=== PATIENT | female | born 1955 | race Caucasian/White ===

== ENCOUNTER → 2024-03-23 | Outpatient (CLI) | payer MEDICARE ==
[2024-03-23 12:35] LABS: Prothrombin Time 10.6 sec (10.0-12.5)
[2024-03-23 15:42] LABS: ALT 35 U/L (8-44); AST 59 U/L (13-35); Albumin 4.5 g/dL (3.8-4.9); Albumin/Globulin Ratio 1.73 Ratio (1.60-3.17); Alkaline Phosphatase 114 U/L (41-126); Blood Urea Nitrogen 6.9 mg/dL (9.0-27.0); Calcium 10.2 mg/dL (8.7-10.3); Carbon Dioxide 24.4 mmol/L (21.6-31.8); Chloride 97 mmol/L (96-109); Globulin 2.6 g/dL (1.6-3.3); Glucose 109 mg/dL (70-110); Potassium 4.9 mmol/L (3.5-5.5); Sodium 132 mmol/L (135-145); Total Bilirubin 0.6 mg/dL (0.3-1.2); Total Protein 7.1 g/dL (6.2-8.2)
[2024-03-23 16:01] LABS: HCT 42.5 % (37.2-46.3); HGB 14.5 g/dL (12.0-15.0); MCH 33.9 pg (27.0-32.0); MCHC 34.1 g/dL (32.0-37.0); MCV 99.3 FL (80.0-97.0); NRBC Per 100 WBC 0 X 10*3/uL (0.00-0.01); Platelet Count 345 X 10*3/uL (140-440); RBC 4.28 X 10*6/uL (4.10-5.20); RDW 11.6 % (11.5-14.5); WBC 7.04 X 10*3/uL (4.50-10.00)
== END | disposition home or self-care (01) ==
LOC: LABPAT 11:24
PROVIDERS: ATTEND Orthopaedic Surgery
DX: Z01.812 Encounter for preprocedural laboratory examination
CPT/HCPCS: 80053; 85027; 85610; 85730; 87070

== ENCOUNTER 2024-04-07 09:06 | Day surgery (SDC) | payer MEDICARE ==
[2024-03-31 10:52] VITALS: BMI 27.4
[~2024-04-07 09:06] MED LIST: HYDROmorphone 0.5 MG/0.5 ML SYRINGE IVP PRN; LIDOCAINE 1% (10MG/ML) FOR IV START INTRADERMA PRN; MAGNESIUM HYDROXIDE 2,400 MG/30 ML CUP PO PRN; METOCLOPRAMIDE 5 MG/ML 2 ML VIAL IVP PRN; NA PHOS,M-B/NA PHOS,DI-BA 133 ML ENEMA RECTAL PRN; NALOXONE 0.4 MG/ML 1 ML VIAL IV PRN; ONDANSETRON 4 MG/2 ML VIAL IVP PRN; TRANEXAMIC 1,000 MG/100ML-NACL 1,000 MG in SALINE 1 100ML.BAG IVPB PRN; bisacodyL 10 MG SUPP RECTAL PRN; fentaNYL (PF) 50 MCG/ML 2 ML AMP IV PRN
[2024-04-07] MEDS: IV FLUID CONTINUATION 1,000 ML IV ONE ×2 (09:35→12:45)
[2024-04-07] MEDS: GABAPENTIN 300 MG CAP PO PRN (09:55)
[2024-04-07] MEDS: ONDANSETRON 4 MG/2 ML VIAL IVP ONE (09:55)
[2024-04-07] MEDS: ACETAMINOPHEN TAB 500 MG TAB PO PRN (09:55)
[2024-04-07] MEDS: DEXAMETHASONE SOD PHOSPHATE 4 MG/ML 1 ML VIAL IV ONE (09:55)
[2024-04-07] MEDS: MIDAZOLAM 2 MG/2 ML VIAL IV ONE (10:01)
[2024-04-07] MEDS: VANCOMYCIN 1,250 MG in SODIUM CHLORIDE 0.9% 250 ML IVPB PRN (10:11)
[2024-04-07] MEDS ORDERED: MIDAZOLAM 2 MG/2 ML VIAL ONE (10:19)
[2024-04-07] MEDS ORDERED: HYDROmorphone (PF) 1 MG/ML ONE (10:19)
[2024-04-07] MEDS ORDERED: SUCCINYLCHOLINE CHLORIDE 200 MG/10 ML VIAL IV ONE (10:19)
[2024-04-07] MEDS ORDERED: ROPIVACAINE 5 MG/ML 30 ML VIAL ONE (10:19)
[2024-04-07] MEDS ORDERED: LIDOCAINE 1% INJ 10MG/ML (20 ML MDV) ONE (10:19)
[2024-04-07] MEDS ORDERED: fentaNYL (PF) 50 MCG/ML 2 ML AMP ONE (10:19)
[2024-04-07] MEDS ORDERED: DEXAMETHASONE SOD PHOSPHATE 4 MG/ML 1 ML VIAL ONE (10:19)
[2024-04-07] MEDS ORDERED: PROPOFOL 10 MG/ML 20 ML VIAL IV ONE (10:19)
[2024-04-07] MEDS ORDERED: TRANEXAMIC 1,000 MG/100ML-NACL PREMIX BAG ONE (10:19)
[2024-04-07] MEDS: ceFAZolin 1,000 MG in SODIUM CHLORIDE 0.9% 1,000 ML IRRIGATION ONE (10:24)
--- NOTE | 2024-04-07 10:56 | P.ANPRN ---
Procedure Note - Anesthesia - Nerve Block Performed Left Augustineck Single Time Out Performed: Yes Date of Procedure: 04/07/24 Procedure Start Time: 10:01 Procedure Stop Time: 10:06 Location of Patient: PreOp Indication: Acute Post-Operative Pain, Analgesia, Requested by Surgeon Sedation Type: Sedate with meaningful contact maintained Preparation: Sterile Prep Position: Right Lateral Catheter: None Needle Types: Pajunk Needle Gauge: 21 Ultrasound used to visualize needle placement: Yes Ultrasound used to observe medication spread: Yes Injectate: 0.5% Ropivacaine (see comment for volume) (Ropiv 20ml+Decadron 4mg) Blood Aspirated: No Pain Paresthesia on Injection Noted: No Resistance on Injection: Normal Image Stored and Saved: Yes Events: Uneventful and Well Tolerated
--- NOTE | 2024-04-07 10:57 | P.ANPRN ---
Procedure Note - Anesthesia - Nerve Block Performed Left Adductor Canal Infusion Time Out Performed: Yes Date of Procedure: 04/07/24 Procedure Start Time: 10:06 Procedure Stop Time: 10:10 Location of Patient: PreOp Indication: Acute Post-Operative Pain, Analgesia, Requested by Surgeon Sedation Type: Sedate with meaningful contact maintained Preparation: Sterile Prep Position: Supine Catheter: Indwelling Needle Types: On-Q Ultrasound used to visualize needle placement: Yes Ultrasound used to observe medication spread: Yes Injectate: 0.5% Ropivacaine (see comment for volume) (Ropiv 20ml+Decadron 4mg) Blood Aspirated: No Pain Paresthesia on Injection Noted: No Resistance on Injection: Normal Image Stored and Saved: Yes Events: Uneventful and Well Tolerated
--- NOTE | 2024-04-07 11:33 | P.OP ---
Date of Procedure: 04/07/24 Preoperative Diagnosis: Severe osteoarthritis left knee Postoperative Diagnosis: Severe osteoarthritis left knee Procedure(s) Performed: Left total knee arthroplasty Implants: Lopez [employer] Nephew Journey II CR Oxinium cruciate retaining femoral component size 6, left [employer] Journey nonporous tibial baseplate size 4, left [employer] Journey II, XLPE Deep Dished articular insert, size 9 mm, Size 3- 4, left [employer] Journey Jolene II resurfacing patellar component, oval, 32 mm All components were cemented using Palacos R bone cement The articulation is Oxinium on polyethylene Anesthesia: spinal Surgeon: Daljit Pedroza Active Directory Engineer #1: Maame Lynn Estimated Blood Loss (ml): 25 Pathology: none sent Condition: stable Disposition: PACU Indications for Procedure: The patient's knee is end-stage, and conservative management has failed. The operation of knee replacement has been discussed at length in the office, as well as potential risks and complications. These are inclusive of, but not limited to: Infection, bleeding, scarring, discomfort, stiffness, blood vessel and nerve damage, need for further surgery, failure to relieve symptoms, persistence, recurrence, or worsening of problems, loosening, dislocation, wear, blood clot, pulmonary embolism, , gait dysfunction, stiffness, and other risks as discussed in the office. Patient elects to proceed and the consent form has been signed. Operative Findings: the operative findings are consistent with severe osteophyte throughout his left knee Description of Procedure: The patient was seen in the preoperative area, the consent was reviewed and the operative site was marked with a skin marker. The patient verified the procedure and the operative site. An adductor canal pain catheter and an iPACK block were placed by anesthesia in the preoperative area. The patient was then brought to the operating room and positioned on the operating room table in the supine position. Preoperative antibiotics and a gram of tranexamic acid were given intravenously. A spinal anesthetic was administered by the anesthesia department. Care was taken to make sure that all pressure points were adequately padded. A tourniquet was placed on the upper thigh and the lower extremity was prepped with ChloraPrep and draped in usual sterile fashion. A universal time-out was then performed which confirmed the patient's name, surgical site, ALLERGIES, and consent. The lower extremity was then exsanguinated and tourniquet was inflated to 250 mmHg. A standard anterior midline approach to the knee was performed. The skin and subcutaneous tissue were sharply dissected down to the patellar tendon. A medial parapatellar arthrotomy was then performed. The knee was then extended, the patellar was everted, and the knee was flexed. The infra-patellar fat pad was removed in order to enhance exposure. The anterior horns of both menisci were excised, and a release was performed to the posterior medial aspect of the knee. On gross visual inspection, there was complete loss of articular cartilage in the medial and patellofemoral joint spaces. There was also significant cartilage damage in the lateral compartment. There were multiple periarticular osteophytes globally about the knee which were then removed with a Ronguer. The femoral canal was then opened with the 9.5 mm intramedullary drill. The 8 mm intramedullary nicky was then inserted into the femoral canal with the distal femoral cutting guide set for 5 of valgus. The distal femoral cutting block was then pinned in place. The intramedullary nicky was then removed, and the distal femur was then cut. The cutting block was then removed and the cut was checked for symmetry. The resected bone was then measured to confirm the appropriate distal femoral resection. Next, the sizing guide was then placed and set for 3 external rotation based off of the epicondylar axis and Gilbert's line. Pins were then placed and the drill holes, and the femur was sized with the sizing stylus. The pins were then removed, and the sizing guide was then removed. The spikes of the appropriate size femoral block was th en placed into the predrilled holes, and malleted into place. Two 45 mm pins were then placed into the fixation holes on the cutting block. An joel wing was then used to ensure there would be no notching with the anterior cut. The anterior condyles were cut without notching. The anterior chord cut was then performed, followed by the posterior cut, posterior chamfer cut, and the anterior chamfer cut. The collateral ligaments were protected during the entire process. The cutting block was then removed. Any remaining bone and osteophytes were removed from the femur with a Ronguer. Attention was then directed to the tibia. The remaining ACL was removed with a Ronguer, and the tibia was then gently subluxed forward with a large bent knee retractor. Any remaining menisci were excised. The posterior lateral corner was cauterized in order to coagulate the lateral geniculate artery. The extra medullary tibial cutting guide was then placed, set for the appropriate rotation, slope, and depth of resection. The proximal tibia cutting guide was then pinned in place. Proximal tibia was then cut and sized. A curved osteotome was then used to remove any posterior osteophytes from the distal femur. The femoral trial was placed. A narrow saw blade was then used to remove the anterior intracondylar femoral bone. The CR notch trial was then placed. The tibial trial was placed with the appropriate-sized insert. The knee was able to fully extend and flex to 130 and was stable throughout all range of motion. The knee was then extended and the patella was everted. Patella was then measured, and then using an osteotomy guide, the patella was cut at the appropriate level. The patellar component was sized. The patellar drill guide was placed and the patella was drilled. The patella trial was then placed. The knee was then taken through range of motion with the patella trial and the patella tracked normally using the no thumbs technique. The patella trial was then removed. The knee was then flexed and lug holes were drilled through the femoral trial and the femoral trial was then removed. The tibial was then re- exposed, and the tibial broach guide was then pinned in place after it was set for the appropriate rotation to allow for the most coverage without overhang. The tibia was then reamed and broached. The femoral canal was plugged with autologous bone. The cut surfaces of bone were then irrigated with pulsatile lavage. The knee was also irrigated with Irrisept solution. The components were then opened, the cement was mixed. Cement was placed on the backside of the femoral, tibial, and patellar components. Cement was then applied to the tibial surface and pressurized into the surface using finger pressurization technique. The tibial component was then applied and excess cement was removed after it was impacted securely noted to be flush with the cut surface. In similar fashion, the cement was applied to the cut femoral surface, pres surized and using finger pressurization the component was impacted in place. Excess cement was removed. The polyethylene spacer was then implanted and locked into position. Patellar component was then applied in a similar technique and the patellar clamp was used to hold patella in place while the cement hardened. The knee was held in full extension while the cement hardened. Once the cement had fully hardened, the knee was reinspected. Any other cement extrusion was removed the final range of motion testing showed range of motion from 0-130 with excellent stability, both medial and laterally and appropriate alignment of the leg. Patella tracked normally. After the cemented hardened, the tourniquet was released and hemostasis was obtained. A second gram of transexamic acid was given intravenously. The knee was again irrigated. The knee was again taken through range of motion and found to be stable throughout all range of motion of 0-130, and the patella tracked normally. The fascia was then closed with 0 Vicryl followed by #2 strata fix suture. The subcutaneous tissue was closed with 3-0 Vicryl and 3-0 strata fix. Exofin glue was used for the skin and placed with the knee in flexion. After the glue had dried, and Optafoam silver impregnated dressing was applied. A lightly compressive dressing was applied using web roll and Anders wrap. Patient was then transferred to the stretcher and taken to recovery room in stable condition. Sponge and needle counts were correct. The assistant women's soccer coach DIANA Toro was required due the complexity surgery and the need for a skilled certified surgical assistant. She assisted in positioning, draping, retraction, and closure of the wound.
[2024-04-07] MEDS: HYDROmorphone 0.5 MG/0.5 ML SYRINGE IVP PRN ×2 (12:13→20:09)
[2024-04-07] MEDS: ROPIVACAINE 1,100 MG, SODIUM CHLORIDE 0.9% 500 ML 330 ML, EMPTY PAIN BALL 1 EACH MISCELLANE PRN (12:26)
--- NOTE | 2024-04-07 12:46 | XR ---
EXAMINATION TYPE: XR knee limited LT DATE OF EXAM: 04/07/2024 CLINICAL HISTORY: Postoperative evaluation Two views of the left knee are submitted. Identified are changes of total knee arthroplasty with fem oral and tibial components appearing well seated. Postsurgical soft tissue changes are noted. Align ment is anatomic. [facility], , 04/07/2024 12:44 PM
[2024-04-07] MEDS: hydrALAZINE HCL 20 MG/ML 1 ML VIAL IVP STA (12:50)
[2024-04-07] MEDS: LACTATED RINGERS 1,000 ML IV SCH (13:36)
[2024-04-07] MEDS: [UNRECOGNIZED DRUG - REMARK] MISCELLANE ONE (13:36)
[2024-04-07] MEDS: ASPIRIN 325 MG TAB PO SCH (13:36)
[2024-04-07] MEDS: SODIUM CHLORIDE 0.9% 1,000 ML IV SCH (15:43)
[2024-04-07] MEDS: hydrOXYzine pamoate 25 MG CAP PO PRN (20:08)
--- NOTE | 2024-04-07 23:01 | P.CONS ---
History of Present Illness - Reason for Consult Consult date: 04/07/24 Medical management Requesting physician: Daljit Pedroza - Chief Complaint Left knee surgery - History of Present Illness Pleasant 68-year-old patient follows with Dr. Harley Saleh. Stable medical conditions include hyperlipidemia, osteoarthritis, history of neck pain and headaches after shoulder surgery. History of right breast cancer in 2008 treated with chemo and radiation. Patient has undergone left total knee arthroplasty. Postprocedure pain is controlled. No nausea vomiting. Did tolerate her supper. Sitting up in chair. No cardiac symptoms. Denies any cardiac history Review of systems: GEN.: None EYES: None HEENT: None NECK: [Occasional neck pain RESPIRATORY: None CARDIOVASCULAR: None GASTROINTESTINAL: None GENITOURINARY: None MUSCULOSKELETAL: Joint pains e LYMPHATICS: None HEMATOLOGICAL: None PSYCHIATRY: None NEUROLOGICAL: None Social history: Patient smoked a pack a day since high school up to 2016. 3 to 4 glasses of wine per day. . Physical examination: VITAL SIGNS: 97.9, 71, 17, 1 4585, 95% room air GENERAL: BMI 27.8, sitting up in a chair awake comfortable. EYES: Pupils equal. Conjunctiva андрей l. HEENT: External appearance of nose and ears normal, oral cavity grossly normal. NECK: JVD not raised; masses not palpable. HEART: First and second heart sounds are normal; no edema. LUNGS: Respiratory rate normal; clear to auscultation. ABDOMEN: Soft, nontender, liver spleen not palpable, no masses palpable. PSYCH: Alert and oriented x3; mood and affect андрей l. MUSCULOSKELETAL:No Clubbing/cyanosis;muscles-grossly intact. OA. Dressing over left knee. NEUROLOGICAL: Cranial nerves grossly intact; no facial asymmetry, power and sensation grossly intact. LYMPHATICS: No lymph nodes palpable in the axilla and neck INVESTIGATIONS, reviewed in the clinical context: March 23, 2024: White count 7.0 hemoglobin 14.5 platelets 345 potassium 4.9 creatinine 0.6 Assessment plan: -Left total knee arthroplasty IV Ancef for infection prophylaxis. Decadron 1 dose. Aspirin 325 twice daily for DVT prophylaxis. -Primary osteoarthritis Pain medication as needed -Hypercholesteremia Simvastatin 40 mg nightly -Alcohol use disorder Patient drinks 3 to 4 glasses of wine at night. Should follow-up outpatient with liver function Care was discussed with the patient. Questions answered. Thank Dr. Pedroza Past Medical History Past Medical History: Cancer, Hyperlipidemia, Osteoarthritis (OA) Additional Past Medical History / Comment(s): Right breast cancer 2008, had chemo and radiation. Recent frequent headaches and neck pain. History of Any Multi-Drug Resistant Organisms: None Reported Year Discovered:: 03/23/24 MDRO Source:: nasal Past Surgical History: Back Surgery, Breast Surgery, Orthopedic Surgery Additional Past Surgical History / Comment(s): Right shoulder surgery, spinal fusion X2 C5-C6-C7, L1-L2, L5-S1, right breast biospy and lumpectomy. Past Anesthesia/Blood Transfusion Reactions: No Reported Reaction Past Psychological History: No Psychological Hx Reported Smoking Status: Former smoker Past Alcohol Use History: Daily Additional Past Alcohol Use History / Comment(s): Quit smoking in 2015, started in high school, 1 ppd. 3-4 glasses of wine per day. Past Drug Use History: None Reported - Past Family History Mother Family Medical History: Cancer Sister(s) Family Medical History: Cancer Medications and Allergies Home Medications Medication Instructions Recorded Confirmed Type Acetaminophen [Tylenol Extra 500 mg PO DIRECTED PRN 03/31/24 03/31/24 History Strength] Harjinder/D3/Mag11/Zinc/Entry Examiner/Yannick/Bor 1 each PO DAILY 03/31/24 03/31/24 History [Caltrate 600+D Plus Tablet] Cholecalciferol [Vitamin D3 (25 25 mcg PO DAILY 03/31/24 03/31/24 History Mcg = 1000 Iu)] Cyanocobalamin (Vitamin B-12) 1,000 mcg PO DAILY 03/31/24 03/31/24 History [Vitamin B-12] Multivitamins, Thera [Multivitamin 1 tab PO DAILY 03/31/24 03/31/24 History (formulary)] Simvastatin 40 mg PO HS 03/31/24 03/31/24 History dexAMETHasone [Decadron] 0.75 mg PO DIRECTED 03/31/24 03/31/24 History methocarbamoL 750 mg PO DIRECTED PRN 03/31/24 03/31/24 History Aspirin 325 mg PO BID #60 tab 04/07/24 Rx HYDROcodone/APAP 7.5-325MG [[place] 1 - 2 tab PO Q6H PRN #32 tab 04/07/24 Rx 7.5-325] Sennosides [Senokot] 2 tab PO DAILY PRN #60 tablet 04/07/24 Rx Allergies Allergy/AdvReac Type Severity Reaction Status Date / Time bupropion [From Zyban] Allergy Swelling Verified 04/07/24 09:22 celecoxib [From Celebrex] Allergy Rash/Hives Verified 04/07/24 09:22 Physical Exam Vitals: Vital Signs Temp Pulse Pulse Resp BP BP Pulse Ox 04/07/24 14:30 97.9 F 71 17 145/85 95 04/07/24 13:03 76 16 141/72 97 04/07/24 12:55 75 17 165/80 99 04/07/24 12:45 61 18 196/78 99 04/07/24 12:30 68 17 171/83 99 04/07/24 12:15 68 16 148/86 99 04/07/24 12:08 77 18 167/98 99 04/07/24 11:58 96.9 F L 75 14 177/82 96 04/07/24 10:05 62 16 181/86 97 04/07/24 09:50 233/105 04/07/24 09:20 97.2 F L 79 16 226/109 97 Intake and Output 04/07/24 04/07/24 04/07/24 06:59 14:59 22:59 Intake Total 1351 420 Output Total 25 Balance 1326 420 Intake: IV 1351 Oral 420 Output: Estimated Blood Loss 25 Other: # Voids 1 Weight 78.1 kg
[2024-04-07] MEDS: SENNOSIDES-DOCUSATE SODIUM 1 EACH TAB PO SCH (23:05)
[2024-04-07] MEDS: ATORVASTATIN 20 MG TAB PO SCH (23:05)
[2024-04-07] MEDS: HYDROcodone/APAP 7.5-325MG 1 EACH TAB PO PRN (23:12)
[2024-04-08] MEDS: MULTIVITAMINS, THERA 1 EACH TAB PO SCH (08:03)
[2024-04-08] MEDS: CYANOCOBALAMIN 500 MCG TAB PO SCH (08:05)
[2024-04-08] MEDS: CHOLECALCIFEROL 25 MCG (1000 IU) TABLET PO SCH (08:05)
--- NOTE | 2024-04-08 08:33 | P.PN ---
Progress Note - Text Progress Note Date: 04/08/24 Postoperative day # 1 status post total knee arthroplasty, and adductor canal catheter placed for postoperative analgesia, currently at ropivacaine 0.2% 8 mL per hour and continuous infusion, visual analogue scale is 3/10, patient using oral pain medication for breakthrough pain. Assessment and plan= Acute postoperative pain, adductor canal catheter for pain control, pain is well controlled we'll continue the same management.
[2024-04-08 08:45] LABS: HCT 33.1 % (37.2-46.3); HGB 11.5 g/dL (12.0-15.0); MCH 35.1 pg (27.0-32.0); MCHC 34.7 g/dL (32.0-37.0); MCV 100.9 FL (80.0-97.0); NRBC Per 100 WBC 0 X 10*3/uL (0.00-0.01); Platelet Count 328 X 10*3/uL (140-440); RBC 3.28 X 10*6/uL (4.10-5.20); RDW 11.8 % (11.5-14.5)
[2024-04-08 09:56] LABS: Basophils # (M) 0 X 10*3/uL (0.00-0.10); Eosinophils # (M) 0 X 10*3/uL (0.04-0.35); Lymphocytes # (M) 1.26 X 10*3/uL (0.90-5.00); Neutrophils # (M) 11.34 X 10*3/uL (1.80-7.70); Neutrophils % (M) 81 %
--- NOTE | 2024-04-08 12:19 | P.PN ---
Subjective Progress Note Date: 04/08/24 This is a 68-year-old fe male who is status post left total knee arthroplasty. This is postoperative day #1 and patient is seen and evaluated at bedside today. Patient states that she is doing well and was able to work with physical therapy without difficulty. Patient states that she started having quite a bit of bloody drainage from the knee around lunchtime today. Otherwise patient denies any new complaints today. Objective - Vital Signs Vital signs: Vital Signs Temp 99.2 F 04/08/24 07:15 Pulse 89 04/08/24 07:15 Resp 18 04/08/24 07:15 BP 154/88 04/08/24 07:15 Pulse Ox 96 04/08/24 07:15 FiO2 Intake & Output 04/07/24 04/08/24 04/08/24 18:59 06:59 18:59 Intake Total 1771 Output Total 25 Balance 1746 Weight 78.1 kg Intake: IV 1351 Oral 420 Output: Estimated Blood Loss 25 Other: Voiding Method Toilet Toilet # Voids 1 5 - Exam Vital signs are stable. Patient is in no acute distress and is alert and oriented 3. Calf is soft and nontender to palpation. Incision is intact with a small area of bloody drainage in the middle of the incision. There is mild swelling present. Patient is able to straight leg raise. Patient has full foot and ankle motion without pain or difficulty. Sensation intact. Neurovascular status and circulatory status are intact. - Labs CBC & Chem 7: 04/08/24 03:16 Labs: Abnormal Lab Results - Last 24 Hours (Table) 04/08/24 Range/Units 03:16 WBC 14.00 H (4.50-10.00) X 10*3/uL RBC 3.28 L (4.10-5.20) X 10*6/uL Hgb 11.5 L (12.0-15.0) g/dL Hct 33.1 L (37.2-46.3) % MCV 100.9 H (80.0-97.0) FL MCH 35.1 H (27.0-32.0) pg MPV 9.0 L (9.5-12.2) FL Neutrophils # (Manual) 11.34 H (1.80-7.70) X 10*3/uL Monocytes # (Manual) 1.40 H (0.20-1.00) X 10*3/uL Eosinophils # (Manual) 0 L (0.04-0.35) X 10*3/uL Assessment and Plan (1) Osteoarthritis of left knee Current Visit: Yes Status: Acute Code(s): M17.12 - UNILATERAL PRIMARY OSTEOARTHRITIS, LEFT KNEE SNOMED Code(s): 540528688166139 (2) S/P total knee arthroplasty Current Visit: Yes Status: Acute Code(s): Z96.659 - PRESENCE OF UNSPECIFIED ARTIFICIAL KNEE JOINT SNOMED Code(s): 3886201932076 Plan: #1 Continue with routine postoperative care and pain control. Reinforce dressing as needed for drainage. Recommend knee immobilizer to help keep the knee straight until drainage subsides. #2 Anticoagulation with aspirin. #3 Physical therapy today. Patient is to refrain from bending the right knee until her drainage slows down. #4 Appreciate input from internal medicine. #5 Anticipate discharge home with home care later today or tomorrow.
--- NOTE | 2024-04-08 18:40 | P.PN ---
Progress Note - Text Progress Note Date: 04/08/24 - Chief Complaint Left knee surgery - History of Present Illness Pleasant 68-year-old patient follows with Dr. Harley Saleh. Stable medical conditions include hyperlipidemia, osteoarthritis, history of neck pain and headaches after shoulder surgery. History of right breast cancer in 2008 treated with chemo and radiation. Patient has undergone left total knee arthroplasty. Postprocedure pain is controlled. No nausea vomiting. Did tolerate her supper. Sitting up in chair. No cardiac symptoms. Denies any cardiac history April 08: Sitting up in a chair. Did ambulate. Pain controlled. Nausea vomiting. Tolerated diet. No cardiac symptoms. Add ferrous sulfate. Knee immobilizer has been ordered for the patient Active Medications Hydrocodone Bitart/Acetaminophen (Hydrocodone/Apap 7.5-325mg 1 Each Tab) 1 each PO Q6H PRN PRN Reason: Pain Scale 1 to 5 Stop: 05/07/24 08:43 Last Admin: 04/08/24 16:44 Dose: 1 each Hydrocodone Bitart/Acetaminophen (Hydrocodone/Apap 7.5-325mg 1 Each Tab) 2 each PO Q6H PRN PRN Reason: Pain Scale 6 to 10 Stop: 05/07/24 08:43 Aspirin (Aspirin 325 Mg Tab) 325 mg PO BID [facility] Stop: 05/07/24 08:59 Last Admin: 04/08/24 08:03 Dose: 325 mg Atorvastatin Calcium (Atorvastatin 20 Mg Tab) 20 mg PO HS [facility] Last Admin: 04/07/24 23:05 Dose: 20 mg Bisacodyl (Bisacodyl 10 Mg Supp) 10 mg RECTAL DAILY PRN PRN Reason: Constipation Stop: 05/07/24 08:42 Cholecalciferol (Cholecalciferol 25 Mcg (1000 Iu) Tablet) 25 mcg PO DAILY [facility] Last Admin: 04/08/24 08:05 Dose: 25 mcg Ropivacaine 1,100 mg/ Sodium Chloride 330 ml/ Bandage/Support Products 1 each 0 mg MISCELLANE Q2H PRN PRN Reason: Breakthrough Pain Stop: 05/07/24 10:56 Last Admin: 04/07/24 12:26 Dose: 550 ml Cyanocobalamin (Cyanocobalamin 500 Mcg Tab) 1,000 mcg PO DAILY [facility] Last Admin: 04/08/24 08:05 Dose: 1,000 mcg Hydromorphone HCl (Hydromorphone 0.5 Mg/0.5 Ml Syringe) 0.125 mg IVP Q3HR PRN PRN Reason: Pain Scale 1 to 3 Stop: 05/07/24 08:42 Hydromorphone HCl (Hydromorphone 0.5 Mg/0.5 Ml Syringe) 0.5 mg IVP Q3HR PRN PRN Reason: Pain Scale 7 to 10 Stop: 05/07/24 08:42 Last Admin: 04/07/24 20:09 Dose: 0.5 mg Hydromorphone HCl (Hydromorphone 0.5 Mg/0.5 Ml Syringe) 0.25 mg IVP Q3HR PRN PRN Reason: Pain Scale 4 to 6 Stop: 05/07/24 08:42 Hydroxyzine Pamoate (Hydroxyzine Pamoate 25 Mg Cap) 25 mg PO Q4HR PRN PRN Reason: Nausea, Anxiety, Pain Control Stop: 05/07/24 08:42 Last Admin: 04/07/24 20:08 Dose: 25 mg Lactated Ringer's (Lactated Ringers) 1,000 mls @ 20 mls/hr IV .Q24H [facility] Stop: 05/07/24 06:24 Last Admin: 04/08/24 00:55 Dose: Not Given Sodium Chloride (Saline 0.9%) 1,000 mls @ 70 mls/hr IV .[id number] [facility] Stop: 05/07/24 08:44 Last Admin: 04/08/24 16:43 Dose: Not Given Lidocaine HCl (Lidocaine 1% (10mg/Ml) For Iv Start) 0.1 ml INTRADERMA PER PROTOCOL PRN PRN Reason: IV Start Stop: 05/07/24 06:24 Magnesium Hydroxide (Magnesium Hydroxide 2,400 Mg/30 Ml Cup) 2,400 mg PO DAILY PRN PRN Reason: Constipation Stop: 05/07/24 08:42 Multivitamins (Multivitamins, Thera 1 Each Tab) 1 each PO DAILY [facility] Last Admin: 04/08/24 08:05 Dose: 1 each Naloxone HCl (Naloxone 0.4 Mg/Ml 1 Ml Vial) 0.2 mg IV Q2M PRN PRN Reason: Opioid Reversal Stop: 05/07/24 08:42 Ondansetron HCl (Ondansetron 4 Mg/2 Ml Vial) 4 mg IVP Q8HR PRN PRN Reason: Nausea And Vomiting Stop: 05/07/24 08:42 Senna/Docusate Sodium (Sennosides-Docusate Sodium 1 Each Tab) 2 each PO HS [place] Stop: 05/07/24 20:59 Last Admin: 04/07/24 23:05 Dose: 2 each Sodium Biphosphate/Sodium Phosphate (Na Phos,M-B/Na Phos,Di-Ba 133 Ml Enema) 133 ml RECTAL DAILY PRN PRN Reason: Constipation Stop: 05/07/24 08:42 Social history: Patient smoked a pack a day since high school up to 2016. 3 to 4 glasses of wine per day. . Physical examination: VITAL SIGNS: 97.7, 87, 18, 139 x 78, 98% room air GENERAL: Sitting up in a chair, awake comfortable EYES: Pupils equal. Conjunctiva андрей l. HEENT: External appearance of nose and ears normal, oral cavity grossly normal. NECK: JVD not raised; masses not palpable. HEART: First and second heart sounds are normal; no edema. LUNGS: Respiratory rate normal; clear to auscultation. ABDOMEN: Soft, nontender, liver spleen not palpable, no masses palpable. PSYCH: Alert and oriented x3; mood and affect андрей l. MUSCULOSKELETAL:No Clubbing/cyanosis;muscles-grossly intact. OA. Dressing over left knee. INVESTIGATIONS, reviewed in the clinical context: April 08: White count 14 hemoglobin 9.5 platelets 328 March 23, 2024: White count 7.0 hemoglobin 14.5 platelets 345 potassium 4.9 creatinine 0.6 Assessment plan: -Left total knee arthroplasty IV Ancef for infection prophylaxis. Decadron 1 dose. Aspirin 325 twice daily for DVT prophylaxis. -Acute postprocedure blood loss anemia expected from surgery Add ferrous sulfate -Primary osteoarthritis Pain medication as needed -Leukocytosis likely reactive. No obvious clinical evidence of infection -Hypercholesteremia Simvastatin 40 mg nightly -Alcohol use disorder Patient drinks 3 to 4 glasses of wine at night. Should follow-up outpatient with liver function Discussed with patient. Add ferrous sulfate Thank Dr. Pedroza Past Medical History Past Medical History: Cancer, Hyperlipidemia, Osteoarthritis (OA) Additional Past Medical History / Comment(s): Right breast cancer 2008, had chemo and radiation. Recent frequent headaches and neck pain. History of Any Multi-Drug Resistant Organisms: None Reported Year Discovered:: 03/23/24 MDRO Source:: nasal Past Surgical History: Back Surgery, Breast Surgery, Orthopedic Surgery Additional Past Surgical History / Comment(s): Right shoulder surgery, spinal fusion X2 C5-C6-C7, L1-L2, L5-S1, right breast biospy and lumpectomy. Past Anesthesia/Blood Transfusion Reactions: No Reported Reaction Past Psychological History: No Psychological Hx Reported Smoking Status: Former smoker Past Alcohol Use History: Daily Additional Past Alcohol Use History / Comment(s): Quit smoking in 2015, started in high school, 1 ppd. 3-4 glasses of wine per day. Past Drug Use History: None Reported
[2024-04-08] MEDS: FERROUS SULFATE 325 MG TAB PO SCH (21:34)
[2024-04-09] MEDS: HYDROcodone/APAP 7.5-325MG 1 EACH TAB PO PRN (00:13)
[2024-04-09 08:53] VITALS: BP 107/70; PULSE 80; RESP 16; TEMP 98.3
--- NOTE | 2024-04-09 10:20 | P.DS ---
Providers Expected date of discharge: 04/09/24 Attending physician: Daljit Pedroza Consults: 04/07/24 08:43 Consult Physician Routine Consulting Provider: Kranthi Thomas Consult Reason/Comments: medical management Do you want consulting provider notified?: Yes Primary care physician: Harley Saleh - Discharge Diagnosis(es) (1) Osteoarthritis of left knee Current Visit: Yes Status: Acute (2) S/P total knee arthroplasty Current Visit: Yes Status: Acute Hospital Course: This is a 68-year-old female with known history of degenerative arthritis of the left knee. The patient presented for evaluation as an outpatient. After discussion and consideration patient elects to proceed with total knee arthroplasty. The patient is seen preoperatively by Dr. Pedroza and medically cleared for surgery by their primary care physician. Patient is [facility] to [facility] on 04/07/2024 for total knee arthroplasty. The procedure is performed without complication or sequelae. The patient is doing well postoperatively. Labs and vital signs are stable on day of discharge. On day of discharge patient's knee incision is healing well. There is minimal erythema. There is mild bloody drainage noted at this time. There is minimal soft tissue swelling to the knee. Patient has full foot and ankle motion without difficulty or pain. Calf is soft and nontender to palpation. Neurovascular status to the left lower extremity is intact. Patient is d ischarged home in good condition. Please see med rec for accurate list of home medications. Plan - Discharge Summary Discharge Rx Participant: No New Discharge Prescriptions: New Aspirin 325 mg PO BID #60 tab Ferrous Sulfate [Feosol] 325 mg PO DAILY #30 tab Sennosides [Senokot] 2 tab PO DAILY PRN #60 tablet PRN Reason: Constipation HYDROcodone/APAP 7.5-325MG [[place] 7.5-325] 1 - 2 tab PO Q6H PRN #32 tab PRN Reason: Pain Continue Cholecalciferol [Vitamin D3 (25 Mcg = 1000 Iu)] 25 mcg PO DAILY Multivitamins, Thera [Multivitamin (formulary)] 1 tab PO DAILY methocarbamoL 750 mg PO DIRECTED PRN PRN Reason: Muscle Spasm Simvastatin 40 mg PO HS Cyanocobalamin (Vitamin B-12) [Vitamin B-12] 1,000 mcg PO DAILY Harjinder/D3/Mag11/Zinc/Technical Solutions Consultant/Yannick/Bor [Caltrate 600+D Plus Tablet] 1 each PO DAILY Acetaminophen [Tylenol Extra Strength] 500 mg PO DIRECTED PRN PRN Reason: Pain Discontinued dexAMETHasone [Decadron] 0.75 mg PO DIRECTED Discharge Medication List Acetaminophen [Tylenol Extra Strength] 500 mg PO DIRECTED PRN 03/31/24 [History] Harjinder/D3/Mag11/Zinc/Technical Solutions Consultant/Yannick/Bor [Caltrate 600+D Plus Tablet] 1 each PO DAILY 03/31/24 [History] Cholecalciferol [Vitamin D3 (25 Mcg = 1000 Iu)] 25 mcg PO DAILY 03/31/24 [History] Cyanocobalamin (Vitamin B-12) [Vitamin B-12] 1,000 mcg PO DAILY 03/31/24 [History] Multivitamins, Thera [Multivitamin (formulary)] 1 tab PO DAILY 03/31/24 [History] Simvastatin 40 mg PO HS 03/31/24 [History] methocarbamoL 750 mg PO DIRECTED PRN 03/31/24 [History] Aspirin 325 mg PO BID #60 tab 04/07/24 [Rx] Sennosides [Senokot] 2 tab PO DAILY PRN #60 tablet 04/07/24 [Rx] Ferrous Sulfate [Feosol] 325 mg PO DAILY #30 tab 04/08/24 [Rx] HYDROcodone/APAP 7.5-325MG [[place] 7.5-325] 1 - 2 tab PO Q6H PRN #32 tab 04/08/24 [Rx] Follow up Appointment(s)/Referral(s): [facility] [NON-STAFF] - As Needed (Continuous Passive Motion knee machine) Harley Saleh MD [Primary Care Provider] - [facility] [NON-STAFF] - As Needed [facility] [NON-STAFF] - As Needed (Knee Immobilizer) Daljit Pedroza DO [Doctor of Osteopathic Medicine] - 04/15/24 1:05 pm (With Maame) Activity/Diet/Wound Care/Special Instructions: Weightbearing as tolerated with a walker. Refrain from bending the knee until follow up in the office next week. Knee immobilizer at night to help keep the knee straight. Hold off on CPM for now until drainage subsides. Leave optifoam dressing intact x 7days. May shower with dressing intact. If dressing becomes saturated, please remove and change dressing daily or as often as needed to keep incision clean and dry. Recommend use of compression stockings daily until follow up to help prevent swelling and blood clots. May remove at night before sleeping. Please take aspirin 325mg twice daily for 30 days to prevent blood clots. Please follow up with [facility] and call with any questions or concerns, . Discharge Disposition: HOME WITH HOME HEALTH SERVICES
--- NOTE | 2024-04-10 08:25 | P.PN ---
Subjective Progress Note Date: 04/09/24 Pleasant 68-year-old patient follows with Dr. Harley Saleh. Stable medical conditions include hyperlipidemia, osteoarthritis, history of neck pain and headaches after shoulder surgery. History of right breast cancer in 2008 treated with chemo and radiation. Patient has undergone left total knee arthroplasty. Postprocedure pain is controlled. No nausea vomiting. Did tolerate her supper. Sitting up in chair. No cardiac symptoms. Denies any cardiac history April 08: Sitting up in a chair. Did ambulate. Pain controlled. Nausea vomiting. Tolerated diet. No cardiac symptoms. Add ferrous sulfate. Knee immobilizer has been ordered for the patient 04/09/2024 Patient is evaluated today resting in bed no acute complaints overnight pain to her left knee is significantly improved. Patient was having some leakage from her surgical incision was reinforced with dressing if the dressing hold stable after lunch then patient will be able to be discharged home. She is recommended to keep her knee straight until follow-up in the orthopedic office and has a knee immobilizer in place. Review of Systems Constitutional: Denied any fatigue denied any fever. Cardio vascular: denied any chest pain, palpitations Gastrointestinal: denied any nausea, vomiting, diarrhea Pulmonary: Denied any shortness of breath cough Neurologic denied any new focal deficits All inpatient medications were reviewed and appropriate changes in these medications as dictated in the interval history and assessment and plan. PHYSICAL EXAMINATION: GENERAL: The patient is alert and oriented x3, not in any acute distress. Well developed, well nourished. HEENT: Pupils are round and equally reacting to light. EOMI. No scleral icterus. No conjunctival pallor. Normocephalic, atraumatic. No pharyngeal erythema. No thyromegaly. CARDIOVASCULAR: S1 and S2 present. No murmurs, rubs, or gallops. PULMONARY: Chest is clear to auscultation, no wheezing or crackles. ABDOMEN: Soft, nontender, nondistended, normoactive bowel sounds. No palpable organomegaly. MUSCULOSKELETAL: No joint swelling or deformity. EXTREMITIES: No cyanosis, clubbing, or pedal edema. NEUROLOGICAL: Gross neurological examination did not reveal any focal deficits. SKIN: No rashes. Assessment plan: -Left total knee arthroplasty IV Ancef for infection prophylaxis. Decadron 1 dose. Aspirin 325 twice daily for DVT prophylaxis. -Acute postprocedure blood loss anemia expected from surgery Add ferrous sulfate -Primary osteoarthritis Pain medication as needed -Leukocytosis likely reactive. No obvious clinical evidence of infection -Hypercholesteremia Simvastatin 40 mg nightly -Alcohol use disorder Patient drinks 3 to 4 glasses of wine at night. Should follow-up outpatient with liver function Discussed with patient. Add ferrous sulfate The impression and plan of care has been dictated by Tosha Rothman, Nurse Practitioner as directed. Dr. Janes MD I have performed a history and physical examination and medical decision making of this patient, discussed the same with the dictator, and agree with the dictators assessment and plan as written, documented as a scribe. Based on total visit time, I have performed more than 50% of this visit. Objective - Vital Signs Vital signs: Vital Signs Temp 98.3 F 04/09/24 07:30 Pulse 80 04/09/24 07:30 Resp 16 04/09/24 11:05 BP 107/70 04/09/24 07:30 Pulse Ox 97 04/09/24 08:58 FiO2 Intake & Output 04/09/24 04/10/24 04/10/24 18:59 06:59 18:59 Intake Total 425 Balance 425 Intake: Oral 425 Other: Voiding Method Toilet # Voids 2 - Labs CBC & Chem 7: 04/08/24 03:16 Assessment and Plan Time with Patient: Less than 30
== END 2024-04-09 13:31 | disposition home health service (06) ==
LOC: OR 09:06 → 4SSUR 12:33 → OR 04-09 13:31
PROVIDERS: ATTEND Orthopaedic Surgery
DX: M17.12 Unilateral primary osteoarthritis, left knee (principal); E78.00 Pure hypercholesterolemia, unspecified; Z79.899 Other long term (current) drug therapy; Z79.82 Long term (current) use of aspirin; Z87.891 Personal history of nicotine dependence; Z85.3 Personal history of malignant neoplasm of breast; Z92.21 Personal history of antineoplastic chemotherapy; Z92.3 Personal history of irradiation
CPT/HCPCS: 94760; 97116; 97161; 64999; 64448; 85025; 73560; 27447; C1713; C1776; C1751; J2250; J3370; J0330; J0360; J1100; J0690 ×2; J2405; J2003; J3010; J1171 ×2; J2795; J2704